=== PATIENT | female | born 1965 | race Caucasian/White ===

== ENCOUNTER 2020-07-07 06:00 | Inpatient (IN) ==
[2020-07-04 13:21] LABS: Basophils # (Auto) 0.02 K/mcL (0.00-0.30); Basophils % (Auto) 0.3 % (0.0-2.0); Eosinophils # (Auto) 0.18 K/mcL (0.00-0.70); Eosinophils % (Auto) 2.7 % (0.0-7.0); Granulocytes % (Auto) 74.6 % (38.0-78.0); Hematocrit 44.3 % (34.1-44.9); Hemoglobin 14.2 g/dL (11.2-15.7); Lymphocytes # (Auto) 1.17 K/mcL (1.50-4.80); Lymphocytes % (Auto) 17.6 % (15.5-49.0); Mean Cell Volume 93.9 fL (80.0-100.0); Mean Corpuscular HGB Conc 32.1 g/dL (31.0-36.0); Mean Platelet Volume 9.7 fL (7.4-10.4); Monocytes # (Auto) 0.32 K/mcL (0.10-0.90); Monocytes % (Auto) 4.8 % (1.0-12.0); Platelet Count 264 K/mcL (140-440); RBC 4.72 M/mcL (3.59-5.38); Red Cell Distribution Width 13.5 % (11.5-14.5); WBC 6.6 K/mcL (4.50-11.00)
[2020-07-04 13:39] LABS: Prothrombin Time 13.9 sec (11.9-14.5)
[2020-07-04 14:00] LABS: ALT/SGPT 27 U/l (0-40); AST/SGOT 25 U/l (0-37); Albumin 4.5 gm/dL (3.2-5.2); Albumin/Globulin Ratio 1.7 (1.0-2.3); Alkaline Phosphatase 78 U/L (39-117); Bilirubin,Total 0.4 mg/dL (0.0-1.0); Blood Urea Nitrogen 18 mg/dl (6-20); Calcium 9.4 mg/dl (8.6-10.4); Carbon Dioxide 25 mmol/L (22-30); Chloride 104 mmol/L (96-108); Globulin 2.6 gm/dL (2.2-3.7); Glomerular Filtration Rate 72; Glucose 105 mg/dL (70-105)
[2020-07-04 14:02] LABS: Appearance,Urine CLEAR; Bacteria,Urine 0 /hpf (0); Bilirubin,Urine NEG (NEG); Color,Urine AMBER; Culture Indicated,Urine NO; Glucose,Urine (UA) NEGATIVE (NEG); Ictotest,Urine NEG (NEG); Ketones,Urine NEG (NEG); Leukocyte Esterase,Urine NEG /uL (NEG); Mucus,Urine MANY /hpf (0); Nitrate,Urine NEG (NEG); Protein,Urine 30 mg/dL (NEG); Specific Gravity,Urine 1.036 (1.000-1.035); Urine Blood 0.03 mg/dL (<0.03); Urine Hyaline Cast 7 /lpf (0-2); Urine RBC 11 /hpf (0-1); Urine Squamous Epithelial Cell 3 /hpf (0-4); Urine Transitional Epi Cells < 1 /hpf (0-2); Urine WBC 4 /hpf (0-4)
[~2020-07-07 06:00] MED LIST: IPRATROPIUM/ALBUTEROL 3 ML AMPUL.NEB NEB PRN; SCOPOLAMINE 1 PATCH PATCH TOPICAL PRN; ceFAZolin 2 GM in DEXTROSE 5% IN WATER 50 ML IV SCH
[2020-07-07] MEDS ORDERED: MAGNESIUM SULFATE 2 GM/50 ML BAG IV ONE ×2 (08:46→09:10)
[2020-07-07] MEDS ORDERED: fentaNYL 100 MCG/2 ML VIAL IV ONE (09:10)
[2020-07-07] MEDS ORDERED: ONDANSETRON 4 MG/2 ML VIAL IV ONE (09:10)
[2020-07-07] MEDS ORDERED: DEXAMETHASONE 10 MG/ML VIAL IV ONE (09:10)
[2020-07-07] MEDS ORDERED: PROPOFOL 200 MG/20 ML VIAL IV ONE (09:10)
[2020-07-07] MEDS ORDERED: TRANEXAMIC ACID 1,000 MG/10 ML VIAL IV ONE (09:10)
[2020-07-07] MEDS ORDERED: LIDOCAINE HCL/PF 100 MG/5 ML SYRINGE IV ONE (09:10)
[2020-07-07] MEDS ORDERED: KETAMINE 100 MG/ML ML IV ONE (09:10)
[2020-07-07] MEDS ORDERED: SUCCINYLCHOLINE 20 MG/ML ML IV ONE (09:10)
[2020-07-07] MEDS ORDERED: MIDAZOLAM 2 MG/2 ML VIAL IV ONE (09:10)
[2020-07-07] MEDS ORDERED: PHENYLEPHRINE 10 MG/ML VIAL IV ONE (09:10)
[2020-07-07] MEDS ORDERED: GLYCOPYRROLATE 0.2 MG/ML VIAL IV ONE (09:10)
[2020-07-07] MEDS ORDERED: HYDROmorphone 1 MG/ML SYRINGE IV ONE (09:10)
[2020-07-07] MEDS ORDERED: ACETAMINOPHEN 1,000 MG/100 ML BOTTLE IV ONE (11:49)
[2020-07-07] MEDS ORDERED: PROMETHAZINE 25 MG/ML VIAL IV PRN (11:49)
[2020-07-07] MEDS ORDERED: ONDANSETRON 4 MG/2 ML VIAL IV PRN (11:49)
[2020-07-07] MEDS ORDERED: NALOXONE HCL 0.4 MG/ML VIAL IV PRN (11:49)
[2020-07-07] MEDS ORDERED: LACTATED RINGERS 250 ML IV PRN (11:49)
[2020-07-07] MEDS ORDERED: FLUMAZENIL 0.1 MG/ML ML IV PRN (11:49)
[2020-07-07] MEDS ORDERED: BENZOCAINE/MENTHOL 1 LOZENGE PO PRN ×2 (11:49→12:58)
[2020-07-07] MEDS ORDERED: IPRATROPIUM/ALBUTEROL 3 ML AMPUL.NEB NEB PRN (11:49)
[2020-07-07] MEDS ORDERED: METHOCARBAMOL 1,000 MG/10 ML VIAL IV PRN (11:49)
[2020-07-07] MEDS ORDERED: LACTATED RINGERS 1,000 ML IV SCH (12:00)
[2020-07-07] MEDS ORDERED: BUPIVACAINE 0.25% 50 ML VIAL IJ ONE (12:50)
[2020-07-07] MEDS ORDERED: THROMBIN (BOVINE) 5,000 UNIT VIAL TOPICAL ONE (12:51)
--- NOTE | 2020-07-07 12:58 | Brief Operative Note ---
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
[2020-07-07] MEDS ORDERED: ONDANSETRON 4 MG ODT TABLET SL PRN (13:03)
[2020-07-07] MEDS ORDERED: 0.9 % SODIUM CHLORIDE 10 ML SYRINGE IV ONE (13:03)
[2020-07-07] MEDS ORDERED: ONDANSETRON (PP) 4 MG TABLET SL PRN (13:08)
[2020-07-07] MEDS ORDERED: ALBUTEROL SULFATE 200 PUFF INHALER INH PRN (13:08)
--- NOTE | 2020-07-07 13:11 | XRay Report ---
HISTORY: FINDINGS: IMPRESSION: 0.6 minutes of fluoroscopy time was used. Interpreted and Authenticated by: Jc Raza 07/07/20
[2020-07-07] MEDS ORDERED: METHOCARBAMOL 500 MG TABLET PO SCH (13:15)
[2020-07-07] MEDS: HYDROmorphone 0.5 MG/0.5 ML SYRINGE IV PRN ×3 (13:41→19:19)
[2020-07-07] MEDS ORDERED: LORazepam 2 MG/ML VIAL IV ONE (14:02)
[2020-07-07] MEDS ORDERED: LORazepam 2 MG/ML VIAL IV PRN (14:17)
[2020-07-07] MEDS: ALBUTEROL SULFATE 2.5 MG/3 ML NEBULIZER NEB SCH ×2 (15:06→18:54)
[2020-07-07] MEDS: oxyCODONE/APAP 5/325MG TABLET PO PRN ×2 (16:25→21:21)
[2020-07-07] MEDS: LACTATED RINGERS 1,000 ML IV SCH ×3 (16:27→22:48)
[2020-07-07] MEDS: ceFAZolin 1 GM VIAL IV SCH (17:44)
[2020-07-07] MEDS: METHOCARBAMOL 750 MG TABLET PO PRN (19:06)
[2020-07-07] MEDS ORDERED: ALBUTEROL SULFATE 2.5 MG/3 ML NEBULIZER NEB PRN (19:08)
[2020-07-07] MEDS: OMEPRAZOLE 20 MG CAPSULE PO SCH (21:20)
[2020-07-07] MEDS: VENLAFAXINE 75 MG CAP.XL.24H PO SCH (21:20)
[2020-07-07] MEDS: SENNOSIDES 1 TABLET PO SCH (21:21)
[2020-07-07] MEDS: MONTELUKAST 10 MG TABLET PO SCH (21:21)
[2020-07-07] MEDS: DOCUSATE SODIUM 100 MG CAPSULE PO SCH (21:21)
[2020-07-07] MEDS: CETIRIZINE 10 MG TABLET PO SCH (21:21)
[2020-07-07] MEDS: DIVALPROEX 125 MG CAP.SPRINK PO SCH (21:21)
[2020-07-08] MEDS: oxyCODONE/APAP 5/325MG TABLET PO PRN ×6 (00:44→21:45)
[2020-07-08] MEDS: ZOLPIDEM 5 MG TABLET PO PRN ×2 (00:44→20:36)
[2020-07-08] MEDS: ceFAZolin 1 GM VIAL IV SCH (00:44)
[2020-07-08] MEDS: LACTATED RINGERS 1,000 ML IV SCH (04:22)
--- NOTE | 2020-07-08 07:10 | Orthopedic Progress Note ---
SUBJECTIVE Subjective Patient information: Note initiated : 07/08/20 at 7:00 am Service Date, if different from initiated Date: [] Patient: Vanita Pyle 54 y/o F admitted on 07/07/20 for L4-5 Xlif with Revision of L5-S1 Hardware. Chief Complaint: [S/P L4/5 DECOMPRESSION AND FUSION] PATIENT IS DOING WELL AND REPORTS HER RADICULAR SYMPTOMS ARE IMPROVED COMPARED TO PRE-OPERATIVELY. SHE HAS AMBULATED SOME WITH THE USE OF A WALKER. SHE DENIES ANY NEW ONSET LOWER EXTREMITY WEAKNESS/PARESTHESIAS. Constitutional Vitals: Vital Signs Temp Pulse Resp BP Pulse Ox 98.8 F 75 14 118/69 94 07/08/20 04:21 07/08/20 04:21 07/08/20 04:21 07/08/20 04:21 07/08/20 04:21 Period Temp Pulse Resp BP Sys/Rodrigues Pulse Ox Last 24 Hr 97.0 F-99.8 F 69-93 12-19 103-139/50-82 88-100 Intake and Output 07/07/20 07/08/20 07/08/20 21:59 05:59 13:59 Intake Total 765 1402 Output Total 1240 100 Balance -475 1302 Weight 176 lb 5 oz Intake & Output: Intake & Output 07/07/20 07/08/20 07/08/20 21:59 05:59 13:59 Intake Total 765 1402 Output Total 1240 100 Balance -475 1302 Weight 176 lb 5 oz Intake: IV 265 927 Lactated Ringers 1,000 ml @ 100 265 927 mls/hr IV .Q10H [facility] Rx#: [id number] Oral 475 IV - Manual Only 500 Output: Drainage 100 Lower Medial Back FRED Drain 100 Drainage 40 Back 40 Void Amount 1200 Other: # Voids 1 1 General appearance: cooperative, no acute distress and obese Extremities Exam Extremities exam: Present normal inspection, Foot pink and warm and neurovascular intact Back Exam Back exam: Present tenderness Additional comments: LUMBAR SPINE: INSPECTION REVEALS AN INTACT SURGICAL INCISION WITH NO ERYTHEMA, SWELLING, OR DRAINAGE. FRED DRAIN IS IN PLACE. PASSIVE AND ACTIVE ROM OF LUMBAR SPINE IS LIMITED. TENDERNESS TO PALPATION OVER THE SURGICAL INCISION. BILATERAL LOWER EXTREMITIES ARE NVI. Neurological Exam Neurological exam: Present alert and oriented X3 Psychiatric Psychiatric exam: Present normal affect and normal mood OBJ DATA Labs CBC & Chem 7: 08/07/20 12:21 08 12:20 Meds: Medications Albuterol Sulfate (Ventolin) 2 puff INH Q4-6HP PRN PRN Reason: bronchospasm Albuterol Sulfate (Ventolin) 2.5 mg NEB Q4HP PRN PRN Reason: Shortness Of Breath Or Wheezing Cetirizine HCl (Zyrtec) 10 mg PO [facility] Last Admin: 07/07/20 21:21 Dose: 10 mg Documented by: Divalproex Sodium (Depakote Sprinkles) 125 mg PO [facility] Last Admin: 07/07/20 21:21 Dose: 125 mg Documented by: Docusate Sodium (Colace) 100 mg PO BID [facility] Last Admin: 07/07/20 21:21 Dose: 100 mg Documented by: Hydromorphone HCl (Dilaudid) 0.5 - 2 mg IV Q2HP PRN; Protocol PRN Reason: Per Pain Protocol Last Admin: 07/07/20 19:19 Dose: 0.5 mg Documented by: Lactated Ringer's (Lactated Ringers) 1,000 mls @ 100 mls/hr IV .Q10H [facility] Last Admin: 07/08/20 04:22 Dose: 100 mls/hr Documented by: Methocarbamol (Robaxin) 750 mg PO Q6HP PRN PRN Reason: Muscle Spasm Last Admin: 07/07/20 19:06 Dose: 750 mg Documented by: [facility]eluk[facility] ([facility]ular) [facility] Last Admin: 07/07/20 21:21 Dose: 10 mg Documented by: Omeprazole (Prilosec) 40 mg PO [facility] Last Admin: 07/07/20 21:20 Dose: 40 mg Documented by: Ondansetron HCl (Zofran Odt) 4 mg SL Q4HP PRN; Protocol PRN Reason: Nausea And Vomiting Oxycodone/Acetaminophen (Percocet 5-325 Mg) 0 tab PO Q4HP PRN; Protocol PRN Reason: Per Pain Protocol Last Admin: 07/08/20 04:18 Dose: 2 tab Documented by: Scopolamine (Transderm-Scop) 1 patch TOPICAL PREOP PRN PRN Reason: Nausea And Vomiting Senna (Senokot) 2 tab PO [facility] Last Admin: 07/07/20 21:21 Dose: 2 tab Documented by: Throat Lozenges (Cepacol) 1 lozenge PO PRN PRN PRN Reason: Sore Throat Venlafaxine HCl (Effexor Xr) 225 mg PO QHS [facility] Last Admin: 07/07/20 21:20 Dose: 225 mg Documented by: Zolpidem Tartrate (Ambien) 10 mg PO HSP PRN PRN Reason: insomnia Last Admin: 07/08/20 00:44 Dose: 10 mg Documented by: A/P Assessment and plan (1) History of surgery: Assessment and plan: AMBULATE TODAY WITH PT. WEAR LUMBAR BRACE WHEN UP. D/C FRED DRAIN TOMORROW. POSSIBLE DISCHARGE TO HOME TOMORROW IF PAIN IS WELL- CONTROLLED AND SHE AMBULATES WITH WITH HER WALKER. Status: Acute Comment: TF RACIEL #2 Bilat L4-5 w/sed 04/29/20 TF RACIEL #1 Tone. L4-5 w/sed 12/10/2019 TF RACIEL #3 Left L4-5 w/sed 06/18/2019 TF RACIEL #2 Bilat L4-5 w/sed 02/26/19 TF RACIEL #1 Bilat L4-5 w/sed 12/19/18 (2) Radiculopathy, lumbar region: Status: Acute Time Spent With Patient Time: Total time spent is greater than 50% in coordination of care (as documented) at patient's floor/unit and/or counseling patient: Total time spent with greater than 50% in coordination of care (as documented) at patient's floor/unit and/or counseling patient:: 15 - 24 minutes
[2020-07-08] MEDS ORDERED: OMEPRAZOLE 20 MG CAPSULE PO SCH (07:30)
[2020-07-08 08:18] LABS: Hematocrit 35.7 % (34.1-44.9); Hemoglobin 11.1 g/dL (11.2-15.7)
[2020-07-08 08:38] LABS: Blood Urea Nitrogen 11 mg/dl (6-20); Calcium 8.4 mg/dl (8.6-10.4); Carbon Dioxide 27 mmol/L (22-30); Chloride 104 mmol/L (96-108); Glomerular Filtration Rate 83; Glucose 114 mg/dL (70-105)
--- NOTE | 2020-07-08 08:59 | Operative Note ---
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 OPERATION PROPOSED: 1. Anterior interbody fusion via lateral retroperitoneal approach L4-5. 2. Application prosthetic device interbody space and interbody fusion L4-5. 3. Removal of nonsegmental instrumentation L5-S1. 4. Posterior segmental instrumentation L4 through S1. 5. Lumbar decompression with decompression of the central canal, lateral recess, and neural foramen with excision of disc fragment at L4-5. 6. Posterior/posterolateral fusion L4-5. OPERATION PERFORMED: 1. Anterior interbody fusion via lateral retroperitoneal approach L4-5. 2. Application prosthetic device interbody space and interbody fusion L4-5. 3. Removal of nonsegmental instrumentation L5-S1. 4. Posterior segmental instrumentation L4 through S1. 5. Lumbar decompression with decompression of the central canal, lateral recess, and neural foramen with excision of disc fragment at L4-5. 6. Posterior/posterolateral fusion L4-5. OPERATING SURGEON: Benny Yepez M.D. DIRECTOR CORRECTIONAL AGENCY: Pravin Guidry PA-C. The PA's assistance was required for the safe and efficient completion of the entire case. This provider's expertise and technical skill were required throughout the case. The PA assisted with preoperative coordination, intraoperative retraction, wound closure, dressing and splint application, as well as postoperative documentation and care coordination. INDICATIONS: This is a lady who has had a previous fusion remotely at the L5-S1 level. She now presents with intractable radiculopathy. She has developed stenosis, instability, and an extrusion at the L4-5 level. OPERATION IN DETAIL: Informed consent was obtained. She was taken to the operating room where she was provided the appropriate anesthetic and prophylactic antibiotics. She was carefully positioned. Her flank was prepped sterilely. A standard retroperitoneal approach to the L4-5 interspace was performed. I advanced through the psoas with an EMG-guided trocar. I sequentially dilated and placed a self-retaining retractor. The disc was incised. I passed a Wenistein across each end plate freeing the contralateral annulus. The disc was removed and I curetted down to subchondral bone. Trials were performed. I impacted a 10 x 50 x 22 XLIF cage filled with morcellized bone graft to allow for fusion and structural support. The wounds were irrigated and closed. The patient was turned prone. Midline incision was performed. Dissection was carried down to expose spinous process of L4 and the remnants of L5. Dissection was then carried laterally to expose the hardware. The hardware was debrided of soft tissue. Each of the locking caps was engaged and removed. The gwen was removed. The L5 pedicle screw was removed. The fusion was inspected and deemed to be solid. A decompression was performed by removing the interspinous ligament and the remnants of the superior aspect of L5 were resected. The inferior half of L4 and laminotomy specifically on the left was performed. The dura and thecal sac were mobilized. I removed a large extruded fragment and the lateral recess was decompressed. Pedicle screws were then placed at L4, both on the right and on the left by passing a gearshift awl. I then probed with a ball-tip whip to ensure there was no pedicle wall violation. Each pedicle was tapped. We also used EMG monitoring. A new pedicle screw was placed at L5. A gwen was applied L4, L5, S1 both on the right and on the left. The wounds were irrigated extensively. The posterior lateral aspect of the spine was decorticated and morselized bone graft packed to allow for fusion. The procedure was completed by compressing across the interbody graft. The gwen was tightened and torqued into the top-loading pedicle screws. After compressing, the wounds were closed over a deep drain with an 0 Vicryl interrupted fashion, 2-0 Vicryl inverted deep dermal, and a running subcuticular. The procedure was tolerated well. No complications. Estimated blood loss was 100-150 mL. LUIZ:jaspal Job ID: [id number] Doc ID: [id number] Noble Yepez MD
[2020-07-08] MEDS: METHOCARBAMOL 750 MG TABLET PO PRN (17:21)
[2020-07-08] MEDS: HYDROmorphone 0.5 MG/0.5 ML SYRINGE IV PRN ×2 (19:09→20:36)
[2020-07-08] MEDS: DOCUSATE SODIUM 100 MG CAPSULE PO SCH ×2 (19:22→20:36)
[2020-07-08] MEDS: 0.9 % SODIUM CHLORIDE 10 ML SYRINGE IV SCH ×2 (19:23→20:36)
[2020-07-08] MEDS: VENLAFAXINE 75 MG CAP.XL.24H PO SCH (20:38)
[2020-07-08] MEDS: OMEPRAZOLE 20 MG CAPSULE PO SCH (20:38)
[2020-07-08] MEDS: SENNOSIDES 1 TABLET PO SCH (20:38)
[2020-07-08] MEDS: MONTELUKAST 10 MG TABLET PO SCH (20:38)
[2020-07-08] MEDS: DIVALPROEX 125 MG CAP.SPRINK PO SCH (20:38)
[2020-07-08] MEDS: CETIRIZINE 10 MG TABLET PO SCH (20:38)
[2020-07-09] MEDS: oxyCODONE/APAP 5/325MG TABLET PO PRN ×4 (01:52→14:29)
[2020-07-09] MEDS: 0.9 % SODIUM CHLORIDE 10 ML SYRINGE IV SCH ×2 (06:01→14:30)
[2020-07-09 07:11] LABS: Hematocrit 33.6 % (34.1-44.9); Hemoglobin 10.6 g/dL (11.2-15.7)
--- NOTE | 2020-07-09 08:30 | Orthopedic Progress Note ---
SUBJECTIVE Subjective Patient information: Note initiated : 07/09/20 at 8:30 am Service Date, if different from initiated Date: [] Patient: Vanita Pyle 54 y/o F admitted on 07/07/20 for L4-5 Xlif with Revision of L5-S1 Hardware. Chief Complaint: [] Constitutional Vitals: Vital Signs Temp Pulse Resp BP Pulse Ox 98.3 F 71 16 101/58 93 07/09/20 04:15 07/09/20 04:15 07/09/20 04:15 07/09/20 04:15 07/09/20 04:15 Period Temp Pulse Resp BP Sys/Rodrigues Pulse Ox Last 24 Hr 97.9 F-98.9 F 71-82 16-18 95-126/52-62 91-98 Intake and Output 07/08/20 07/09/20 07/09/20 21:59 05:59 13:59 Intake Total 600 400 Output Total 570 55 Balance 30 345 Weight 210 lb 1 oz Intake & Output: Intake & Output 07/08/20 07/09/20 07/09/20 21:59 05:59 13:59 Intake Total 600 400 Output Total 570 55 Balance 30 345 Weight 210 lb 1 oz Intake: Oral 600 400 Output: Drainage 40 Lower Medial Back MENDEZ Drain 40 Drainage 70 15 Lower Medial Back MENDEZ Drain 70 15 Void Amount 500 Other: Urine Color Bright Yellow Urine Odor Normal # Voids 1 OBJ DATA Labs CBC & Chem 7: 07/09/20 06:07 07/08/20 06:18 Labs: Abnormal Lab Results 07/09/20 07/08/20 07/08/20 06:07 06:18 06:18 Hgb 10.6 L 11.1 L Hct 33.6 L Glucose 114 H Calcium 8.4 L Meds: Medications Albuterol Sulfate (Ventolin) 2 puff INH Q4-6HP PRN PRN Reason: bronchospasm Albuterol Sulfate (Ventolin) 2.5 mg NEB Q4HP PRN PRN Reason: Shortness Of Breath Or Wheezing Cetirizine HCl (Zyrtec) 10 mg PO HS [facility] Last Admin: 07/08/20 20:38 Dose: 10 mg Documented by: Divalproex Sodium (Depakote Sprinkles) 125 mg PO HS [facility] Last Admin: 07/08/20 20:38 Dose: 125 mg Documented by: Docusate Sodium (Colace) 100 mg PO BID [facility] Last Admin: 07/08/20 20:36 Dose: 100 mg Documented by: Hydromorphone HCl (Dilaudid) 0.5 - 2 mg IV Q2HP PRN; Protocol PRN Reason: Per Pain Protocol Last Admin: 07/08/20 20:36 Dose: 0.5 mg Documented by: Methocarbamol (Robaxin) 750 mg PO Q6HP PRN PRN Reason: Muscle Spasm Last Admin: 07/08/20 17:21 Dose: 750 mg Documented by: Montelukast Sodium (Singular) 10 mg PO QHS [facility] Last Admin: 07/08/20 20:38 Dose: 10 mg Documented by: Omeprazole (Prilosec) 40 mg PO [facility] Last Admin: 07/08/20 20:38 Dose: 40 mg Documented by: Ondansetron HCl (Zofran Odt) 4 mg SL Q4HP PRN; Protocol PRN Reason: Nausea And Vomiting Oxycodone/Acetaminophen (Percocet 5-325 Mg) 0 tab PO Q4HP PRN; Protocol PRN Reason: Per Pain Protocol Last Admin: 07/09/20 06:01 Dose: 2 tab Documented by: Scopolamine (Transderm-Scop) 1 patch TOPICAL PREOP PRN PRN Reason: Nausea And Vomiting Senna (Senokot) 2 tab PO [facility] Last Admin: 07/08/20 20:38 Dose: 2 tab Documented by: Sodium Chloride (Saline Flush) 10 ml IV Q8 [facility] Last Admin: 07/09/20 06:01 Dose: 10 ml Documented by: Throat Lozenges (Cepacol) 1 lozenge PO PRN PRN PRN Reason: Sore Throat Venlafaxine HCl (Effexor Xr) 225 mg PO QHS [facility] Last Admin: 07/08/20 20:38 Dose: 225 mg Documented by: Zolpidem Tartrate (Ambien) 10 mg PO HSP PRN PRN Reason: insomnia Last Admin: 07/08/20 20:36 Dose: 10 mg Documented by: A/P Narrative A/P Narrative: no issues dc mendez dc home Time Spent With Patient Time: Total time spent is greater than 50% in coordination of care (as documented) at patient's floor/unit and/or counseling patient:
--- NOTE | 2020-07-09 08:32 | Discharge Plan ---
Discharge Instructions - Spine Patient Instructions Spine Protocol: Limit bending and stooping. No heavy lifting. Wear brace/collar at all times except when showering and sleeping. Additional Dressing Instructions: May Shower 48 hours post-operative and replace with dry dressing after shower. Discharge Plan Patient/Caregiver Discharge Instructions Activity: increase activity as tolerated and as instructed Diet: Regular Diet Prescriptions: New oxycodone-acetaminophen 5-325 mg Tablet 1 - 2 tab PO Q4HP PRN (Reason: Per Pain Protocol) Qty: 0 RF: 0 Continued montelukast 10 mg tablet 10 mg PO QHS Qty: 90 RF: 1 albuterol sulfate [Ventolin HFA] 90 mcg/actuation HFA aerosol inhaler 2 puff INHALATION Q4-6H PRN (Reason: bronchospasm) Qty: 18 RF: 6 hydrocodone-acetaminophen 7.5-325 mg tablet 1 tab PO .QD PRN (Reason: pain) Qty: 30 RF: 0 albuterol sulfate 2.5 MG/3 ML solution for nebulization 2.5 mg NEB Q4HRT Qty: 20 RF: 0 venlafaxine 75 MG capsule,extended release 24hr 225 mg PO QHS RF: 0 cetirizine 10 MG tablet 10 mg PO HS RF: 0 divalproex 125 MG tablet,delayed release (DR/EC) 125 mg PO HS RF: 0 ondansetron 4 MG tablet 4 mg SL Q4HP PRN (Reason: Nausea And Vomiting) Qty: 20 RF: 0 omeprazole 40 mg Capsule,Delayed Release(Dr/Ec) 40 mg PO HS RF: 0 zolpidem 5 mg tablet 10 mg PO HS PRN (Reason: insomnia) RF: 0 methocarbamol 500 mg tablet 1,000 mg PO Q8H Qty: 30 RF: 0 diclofenac sodium 75 mg Tablet,Delayed Release (Dr/Ec) 75 mg PO HS RF: 0 Follow Up Plan Follow up with: Pravin Guidry PA-C [Physician Filleter] - 07/22/20 9:10 am Patient Disposition: Home, Self-Care
[2020-07-09] MEDS: DOCUSATE SODIUM 100 MG CAPSULE PO SCH (09:40)
== END 2020-07-09 14:50 | disposition home or self-care (01) | DRG 454 ==
LOC: MEDSUR 06:00
PROVIDERS: ADMIT Orthopaedic Surgery Orthopaedic Surgery of the Spine; ATTEND Orthopaedic Surgery Orthopaedic Surgery of the Spine